=== PATIENT | male | born 1995 | race Caucasian/White ===

== ENCOUNTER 2024-11-30 20:20 | Emergency (ER) | payer BC, SELFPAY ==
[2024-11-30 20:24] VITALS: BP 148/84; PULSE 74; TEMP 36.8; O2SAT 98; BMI 32.9
--- NOTE | 2024-11-30 22:17 | ED_ITS ---
HPI - Nausea/Vomiting/Diarrhea General Chief complaint: Nausea/Vomiting/Diarrhea Stated complaint: TIRED, VOMITING, DIARRHEA Time Seen by Provider: 11/30/24 22:11 Source: patient Mode of arrival: walk-in History of Present Illness HPI Narrative: diarrhea on and off for past 3 days. No blood. Vomiting on and off for a couple of days. Feels weak and light headed. No abdominal pain or fever. No respiratory symptoms Related Data Allergies Allergy/AdvReac Type Severity Reaction Status Date / Time No Known Drug Allergies Allergy Verified 11/30/24 20:30 Review of Systems ROS Status of ROS 10 or more systems reviewed and unremark able except as noted in history and below PFSH PFSH Social History Little interest or pleasure in doing things: not at all Feeling down, depressed, or hopeless: not at all Exam Constitutional Vital Signs, click to edit/add: Last Vital Signs Temp 98.2 F 11/30/24 20:24 Pulse 74 11/30/24 20:24 Resp 16 11/30/24 20:24 BP 148/84 H 11/30/24 20:24 Pulse Ox 98 11/30/24 20:24 O2 Del Method Room Air 11/30/24 20:24 Common normals: no apparent distress, average body habitus, oriented x3, no limitations, healthy appearing, alert and well nourished [facility] Common normals: normocephalic and head/scalp atraumatic Eye Common normals: PERRL, EOMs intact bilaterally and conjunctivae normal Respiratory Common normals: normal respiratory effort, no retractions, no use of accessory muscles and clear to auscultation bilaterally Cardio Common normals: regular rate, regular rhythm, S1 normal heart sound and S2 normal heart sound GI Common normals: Normal to inspection, nondistended, normoactive bowel sounds present, soft to palpation and non-tender Extremity Common normals: normal to inspection and full ROM Neuro Common normals: oriented x3, CN's II-XII intact bilaterally, moves all extremities and no focal motor deficits Psych Appearance: grossly normal Course Vital Signs Vital signs: Vital Signs Temperature 98.2 F 11/30/24 20:24 Pulse Rate 74 11/30/24 20:24 Respiratory Rate 16 11/30/24 20:24 Blood Pressure 148/84 H 11/30/24 20:24 Pulse Oximetry 98 11/30/24 20:24 Oxygen Delivery Method Room Air 11/30/24 20:24 Temperature 98.2 F 11/30/24 20:24 Pulse Rate 74 11/30/24 20:24 Respiratory Rate 16 11/30/24 20:24 Blood Pressure 148/84 H 11/30/24 20:24 Pulse Oximetry 98 11/30/24 20:24 Oxygen Delivery Method Room Air 11/30/24 20:24 MDM - Nausea/Vomiting/Diarrhea MDM Narrative Medical decision making narrative: patient presents with nausea, vomiting and diarrhea. abdomen soft and nontender. Patient medicated with antiemetic and hydrated. labs WNL. Patient is feeling better and discharged home to follow up with his family doctor prescribed zofran. He has immodium at home to use prn Lab Data Labs: Lab Results 11/30/24 11/30/24 Range/Units 21:40 22:26 WBC 8.3 (4.0-11.0) 10^3/uL RBC 5.91 (4.70-6.10) 10^6/uL Hgb 17.1 (14.0-18.0) g/dL Hct 49.6 (42.0-54.0) % MCV 83.9 (80.0-94.0) fL MCH 28.9 (25.9-34.0) pg MCHC 34.5 (29.9-35.2) g/dL RDW 13.0 (11.0-15.0) % Plt Count 177 (150-450) 10^3/uL MPV 11.7 (9.5-13.5) fL Neut % (Auto) 62.7 (43.0-75.0) % Lymph % (Auto) 24.9 (20.5-60.0) % [place] % (Auto) 9.9 (1.7-12.0) % Eos % (Auto) 1.9 (0.9-7.0) % Baso % (Auto) 0.4 (0.2-2.0) % Neut # (Auto) 5.2 (1.4-6.5) 10^3/uL Lymph # (Auto) 2.1 (1.2-3.8) 10^3/uL [place] # (Auto) 0.8 (0.3-0.8) 10^3/uL Eos # (Auto) 0.2 (0.0-0.7) 10^3/uL Baso # (Auto) 0.0 (0.0-0.1) 10^3/uL Abs Immat Gran (auto) 0.02 (0.00-0.03) 10^3/uL Imm/Tot Granulo (auto) 0.2 (0.0-0.5) % Sodium 138 (136-145) mmol/L Potassium 3.7 (3.5-5.1) mmol/L Chloride 103 (98-107) mmol/L Carbon Dioxide 26.2 (21.0-32.0) mmol/L Anion Gap 12.5 BUN 9.0 (7.0-18.0) mg/dL Creatinine 0.89 (0.70-1.30) mg/dL Est GFR ( Amer) >60 (>=60 mL/min/1.73m^2) Est GFR (Non-Af Amer) >60 (>=60 mL/min/1.73m^2) BUN/Creatinine Ratio 10.1 Glucose 90 (74-106) mg/dL Lactate 0.8 (0.4-2.0) mmol/L Calcium 9.2 (8.5-10.1) mg/dL Total Bilirubin 1.6 H (0.2-1.0) mg/dL AST 24 (15-37) U/L ALT 43 (16-63) U/L Alkaline Phosphatase 88 (46-116) U/L Total Protein 7.8 (6.4-8.2) g/dL Albumin 3.9 (3.4-5.0) g/dL Globulin 3.9 g/dL Albumin/Globulin Ratio 1.0 Urine Color Yellow (YELLOW) Urine Clarity Clear (CLEAR) Urine pH 6.0 (5.0-9.0) Ur Specific [place] 1.025 (1.005-1.025) Urine Protein Trace (NEG/TRACE) mg/dL Urine Glucose (UA) Negative (NEGATIVE) mg/dL Urine Ketones Trace A (NEGATIVE) mg/dL Urine Occult Blood Negative (NEGATIVE) Urine Nitrite Negative (NEGATIVE) Urine Bilirubin Negative (NEGATIVE) Urine Urobilinogen 1.0 (0.2-1.0) EU/dL Ur Leukocyte Esterase Negative (NEGATIVE) Urine RBC None seen (0-2) #/HPF Urine WBC 0-2 A (NONE SEEN) #/HPF Ur Squamous Epith Cells None seen (NONE/RARE) #/LPF Urine Crystals None seen (None Seen) #/HPF Urine Bacteria None seen (NONE SEEN) #/HPF Urine Casts Seen A (NONE SEEN) #/LPF Hyaline Casts Rare Urine Mucus Moderate A (NONE SEEN) Ur Culture Indicated? No Discharge Plan Discharge Chief Complaint: Nausea/Vomiting/Diarrhea Clinical Impression: Gastroenteritis Patient Disposition: Home, Self-Care Print Language: Kyr[place]z Instructions: Gastroenteritis (ED) Additional Instructions: drink fluids. follow up with your doctor early next week for recheck. Return if any worsening Referrals: Ghislaine Denis NP [Primary Care Provider] - 1 week
[2024-11-30 22:38] LABS: Hematocrit 49.6 % (42.0-54.0); Hemoglobin 17.1 g/dL (14.0-18.0); Immature Granulocytes Abs Auto 0.02 10^3/uL (0.00-0.03); Immature Granulocytes Pct Auto 0.2 % (0.0-0.5); Lymphocytes Absolute Auto 2.1 10^3/uL (1.2-3.8); Mean Corpuscular HGB Conc 34.5 g/dL (29.9-35.2); Mean Corpuscular Hemoglobin 28.9 pg (25.9-34.0); Mean Corpuscular Volume 83.9 fL (80.0-94.0); Platelet Count 177 10^3/uL (150-450); Red Blood Count 5.91 10^6/uL (4.70-6.10); White Blood Count 8.3 10^3/uL (4.0-11.0)
[2024-11-30] MEDS: 0.9 % SODIUM CHLORIDE 1,000 ML 999 ML IV (22:38)
[2024-11-30 22:46] LABS: Glucose Urine UA NEGATIVE (NEGATIVE)
[2024-11-30 22:52] LABS: Alanine Aminotransferase 43 U/L (16-63); Albumin Globulin Ratio 1.0; Albumin Level 3.9 g/dL (3.4-5.0); Alkaline Phosphatase 88 U/L (46-116); Anion Gap 12.5; Aspartate Amino Transferase 24 U/L (15-37); Blood Urea Nitrogen 9.0 mg/dL (7.0-18.0); Calcium 9.2 mg/dL (8.5-10.1); Carbon Dioxide 26.2 mmol/L (21.0-32.0); Chloride 103 mmol/L (98-107); Estimated GFR (African America >60 (>=60 mL/min/1.73m^2); Estimated GFR (Non-African Ame >60 (>=60 mL/min/1.73m^2); Globulin 3.9 g/dL; Glucose 90 mg/dL (74-106); Potassium 3.7 mmol/L (3.5-5.1); Sodium 138 mmol/L (136-145); Total Protein 7.8 g/dL (6.4-8.2)
[2024-11-30 22:55] LABS: Lactate/Lactic Acid 0.8 mmol/L (0.4-2.0)
[2024-11-30 22:57] LABS: Cast Seen? SEEN #/LPF (NONE SEEN); Crystals Seen? None Seen #/HPF (None Seen); Urine Culture Indicated NO
== END 2024-12-01 00:11 | disposition home or self-care (01) ==
PROVIDERS: Emergency Provider Internal Medicine; PCP Nurse Practitioner Family
DX: K52.9 Noninfective gastroenteritis and colitis, unspecified (principal)
CPT/HCPCS: 36415; 80053; 81001; 83605; 85025; 96360; 99284